=== PATIENT | male | born 1980 | race Caucasian/White ===

== ENCOUNTER → 2019-07-09 10:42 | Outpatient (CLI) | payer OTHER, SELFPAY ==
--- NOTE | 2019-07-09 10:44 | DI.US.S_ITS ---
PROCEDURE: US PERIPH VENOUS LOW EXTREM LT INDICATIONS: LEFT LEG SWELLING TECHNIQUE: Real-time imaging, as well as color and pulse Doppler interrogation, were performed of the lower extremity deep veins from the inguinal ligament to the popliteal fossa. COMPARISON: None. FINDINGS: The common femoral, femoral and popliteal veins are normally compressible, and free of intraluminal thrombus. Color and pulse Doppler demonstrate normal phasic intraluminal flow. There is normal augmentation response to distal compression maneuver. Superficial thrombophlebitis in the area pain within the left leg. IMPRESSION: No deep venous thrombosis identified within the left lower extremity. Superficial thrombophlebitis. Dictated by: Felipe LORENZ Interpreted: Marilin Thrasher MD on 07/09/2019 at 12:26 Approved by: Marilin Thrasher M.D. on 07/10/2019 at 7:07
== END ==
PROVIDERS: PCP Internal Medicine; Visit Provider Internal Medicine
DX: I80.02 Phlebitis and thrombophlebitis of superficial vessels of left lower extremity (principal)
CPT/HCPCS: 93971

== ENCOUNTER 2020-10-17 12:13 | Emergency (ER) | payer OTHER, SELFPAY ==
[2020-10-17 12:42] VITALS: BP 125/76; PULSE 56; RESP 14; TEMP 36.5; O2SAT 99
--- NOTE | 2020-10-17 12:46 | DI.US.S_ITS ---
PROCEDURE: US [facility] VENOUS LOW EXTREM LT INDICATIONS: LEFT MED LOWER LEG LUMP; HISTORY THROMBOSED VARICOSITY TECHNIQUE: Real-time imaging, as well as color and pulse Doppler interrogation, were performed of the lower extremity deep veins from the inguinal ligament to the popliteal fossa. COMPARISON: [facility], , [facility] VENOUS LOW EXTREM LT, 07/09/2019, 10:57. FINDINGS: The common femoral, femoral and popliteal veins are normally compressible, and free of intraluminal thrombus. Color and pulse Doppler demonstrate normal phasic intraluminal flow. There is normal augmentation response to distal compression maneuver. Ultrasound in the region of pain in the medial mccallum, at an area of a palpable lump, demonstrates the presence of thrombosed varicosities. IMPRESSION: 1. 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 2. Negative left lower extremity duplex venous ultrasound for DVT. Dictated by: Tam Hameed M.D. on 10/17/2020 at 14:05 Approved by: Tam Hameed M.D. on 10/17/2020 at 14:08
[2020-10-17 15:18] VITALS: PULSE 70
--- NOTE | 2020-10-17 15:20 | ED_ITS ---
HPI - Extremity Problem <CT Irwin - Last Filed: 10/17/20 16:19> General Chief complaint: Extremity Problem,Nontraumatic Stated complaint: Swelling In Lt Leg, Poss Blood Clot Time Seen by Provider: 10/17/20 14:49 Source: patient Mode of arrival: Ambulatory Limitations: no limitations History of Present Illness HPI Narrative: The patient is a 40-year-old male who presents with a chief complaint of pain and swelling of his left lower leg. He denies any history of DVT, but has history of superficial clots in his left leg. He denies any chest pain or shortness of breath. Denies any recent surgeries or hospitalizations. He states that he was an active last week, further interview states that he was sitting more often than usual and unable to exercise an hour day.. This morning he applied pressure socks, took aspirin, and states that this decreased his pain. He denies any chest pain or shortness of breath. Related Data Home Medications Medication Instructions Recorded Confirmed No Known Home Medications 10/30/18 10/17/20 Allergies Allergy/AdvReac Type Severity Reaction Status Date / Time No Known Drug Allergies Allergy Verified 10/17/20 12:45 Review of Systems <CT Iwrin - Last Filed: 10/17/20 16:19> Review of Systems Narrative: GENERAL: Denies chills, fatigue, malaise, fever, sweats. HEENT: Denies sinus pain, ear pain, sore throat, difficulty swallowing, dizziness. RESPIRATORY: Denies dyspnea, cough, wheezing, hemoptysis, sputum. CARDIOVASCULAR: Denies chest pain, palpitations, orthopnea, edema, GASTROINTESTINAL: Denies nausea, vomiting, abdominal pain, diarrhea, constipation, melena. : Denies dysuria, frequency, incontinence, hematuria, urinary retention. MUSCULOSKELETAL: See HPI SKIN: See HPI NEUROLOGIC: Denies weakness, headache, numbness, change in speech, confusion, seizures, incoordination. PSYCHIATRIC: No concerning psychosocial issues. 12 point review of systems is negative except for those stated above Patient History <CT Irwin - Last Filed: 10/17/20 16:19> Surgical History History of cardiac radiofrequency ablation (RFA) History of vasectomy Family History Brother Age: 36 Diabetes mellitus Father Age: 72 Heart disease Mother Age: 66 Cancer Social History Smoking Status: Never smoker Smoking Status: Never smoker alcohol intake frequency: 0-2 drinks per day Substance Use Type: does not use Exam <CT Irwin - Last Filed: 10/17/20 16:19> Narrative Exam Narrative: GENERAL: This is a well-nourished, well-developed patient, in no acute distress HEAD: Atraumatic. Normocephalic. No temporal or scalp tenderness. EYES: Pupils equal round and reactive. Extraocular motions intact. No scleral icterus. No injection or drainage. ENT: Nose without bleeding, purulent drainage or septal hematoma. Wearing a mask. Airway patent. NECK: Trachea midline. No JVD or lymphadenopathy. Supple, nontender, no meningeal signs. CARDIOVASCULAR: Regular rate and rhythm RESPIRATORY: Clear to auscultation. Breath sounds equal bilaterally. No wheezes, rales, or rhonchi. No cough. No increased respiratory effort. No accessory muscle use. EXTREMITIES: Pain to palpation noted medial aspect left lower leg, slight ov erlying erythema, full range of motion noted left ankle, positive pedal pulses, no obvious swelling left foot and lower leg BACK: Nontender without deformity or crepitance. No flank tenderness. NEURO: AOx3. SKIN: See extremity exam Initial Vital Signs Initial Vital Signs: Vital Signs Temperature 97.7 F 10/17/20 12:42 Pulse Rate 56 L 10/17/20 12:42 Respiratory Rate 14 10/17/20 12:42 Blood Pressure 125/76 10/17/20 12:42 Pulse Oximetry 99 10/17/20 12:42 <Sachi Galindo DO - Last Filed: 10/18/20 07:45> Initial Vital Signs Initial Vital Signs: Vital Signs Temperature 97.7 F 10/17/20 12:42 Pulse Rate 56 L 10/17/20 12:42 Respiratory Rate 14 10/17/20 12:42 Blood Pressure 125/76 10/17/20 12:42 Pulse Oximetry 99 10/17/20 12:42 Scores <CT Irwin - Last Filed: 10/17/20 16:19> GCS [place] coma scale eye opening: Spontaneous [place] coma scale verbal response: Orientated [place] coma scale motor response: Obey commands [place] coma scale total score: 15 Course <CT Irwin - Last Filed: 10/17/20 16:19> Orders Ordered: ED Orders 10/17/20 12:46 [facility] venous low extrem lt Stat Vital Signs Vital signs: Vital Signs - 8 hr 10/17/20 12:42 10/17/20 15:18 Temperature 97.7 F Pulse Rate 56 L Pulse Rate [Left Dorsalis Pedis] 70 Respiratory Rate 14 Blood Pressure 125/76 Pulse Oximetry 99 <Sachi Galindo DO - Last Filed: 10/18/20 07:45> Orders Ordered: ED Orders 10/17/20 12:46 [facility] venous low extrem lt Stat Vital Signs Vital signs: Vital Signs - 8 hr 10/17/20 12:42 10/17/20 15:18 Temperature 97.7 F Pulse Rate 56 L Pulse Rate [Left Dorsalis Pedis] 70 Respiratory Rate 14 Blood Pressure 125/76 Pulse Oximetry 99 MDM - Extremity (Nontraumatic) <CT Irwin - Last Filed: 10/17/20 16:19> Imaging Data US - DVT: Radiologist's Impression: [address] [place] [id number] ReportSigned Patient: Bong Woodard R#: [id number]: [id number]:[id number]/Sex: 40 / MDate of Service: 10/17/20Loc: EDAccession Number: [id number] Procedure: [facility] venous low extrem lt Ordering Provider: Sachi Galindo D.O. PROCEDURE: [facility] VENOUS LOW EXTREM LT INDICATIONS: LEFT MED LOWER LEG LUMP; HISTORY THROMBOSED VARICOSITY TECHNIQUE: Real-time imaging, as well as color and pulse Doppler interrogation, were performed of the lower extremity deep veins from the inguinal ligament to the popliteal fossa. COMPARISON: [facility], [facility] VENOUS LOW EXTREM LT, 07/09/2019, 10:57. FINDINGS: The common femoral, femoral and popliteal veins are normally comp ressible, and free of intraluminal thrombus. Color and pulse Doppler demonstrate normal phasic intraluminal flow. There is normal augmentation response to distal compression maneuver. Ultrasound in the region of pain in the medial mccallum, at an area of a palpable lump, demonstrates the presence of thrombosed varicosities. IMPRESSION: 1. 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 2. Negative left lower extremity duplex venous ultrasound for DVT. Dictated by: Tam Hameed M.D. on 10/17/2020 at 14:05 Approved by: Tam Hameed M.D. on 10/17/2020 at 14:[address] [facility] Narrative Medical decision making narrative: The patient is a 40-year-old male who presents with a chief complaint of pain and swelling to his left lower leg, concern for possible deep vein thrombosis. His ultrasound is negative for DVT, positive for thrombosed varicosities. Thus I discussed at length continuing his pressure socks, aspirin for pain, follow-up with primary care provider. Discussed at length coming back to ER for acute concerns. Patient has no questions or concerns upon discharge states understanding of return precautions as well as follow-up care. Discharge Plan Departure Patient Disposition: Home Clinical Impression: Superficial vein thrombosis Instructions: DI for Superficial Thrombophlebitis Activity Restrictions/Additional Instructions: Thank you for trusting us with your care today. As discussed, your ultrasound shows no evidence of deep vein thrombosis. However you do have thrombosed superficial varicosities. Please continue your use of compression socks and [id number] medications as needed and able Please follow-up with your primary care provider in the next few days Please come back to the emergency department for any acute concerns chest pain shortness of breath etcetera Prescriptions: No Action No Known Home Medications RF: 0 Referrals: Franco Benedict MD [Primary Care Provider] - <Sachi Galindo DO - Last Filed: 10/18/20 07:45> [facility] ED Attending Zariaature Attestation: I was immediately available in the department for consultation. Documentation has been reviewed. I agree with assessment and plan.
== END 2020-10-17 15:30 | disposition home or self-care (01) ==
PROVIDERS: Emergency Provider Nurse Practitioner Family; PCP Internal Medicine
DX: I82.812 Embolism and thrombosis of superficial veins of left lower extremity (principal)
CPT/HCPCS: 93971; 99283

== ENCOUNTER → 2023-08-21 07:59 | Outpatient (CLI) | payer OTHER, SELFPAY | LOC: CAR 07:59 | PROVIDERS: PCP Internal Medicine; Referring Provider Internal Medicine; Visit Provider Internal Medicine | DX: I48.91 Unspecified atrial fibrillation (principal); I48.92 Unspecified atrial flutter | CPT/HCPCS: 93246 ==